=== PATIENT | male | born 2000 | race Caucasian/White ===

== ENCOUNTER 2021-10-22 08:31 | Inpatient (IN) | payer OTHER ==
[~2021-10-22] VITALS: Ht 170.2 cm; Wt 69.0 kg
[2021-10-22] MEDS ORDERED: EPINEPHrine 1:10,000 [1 MG/10 ML] SYRINGE ONE (10:11)
[2021-10-22] MEDS ORDERED: HALOPERIDOL LACTATE 5 MG/ML VIAL IM ONE (11:45)
[2021-10-22 11:52] LABS: BASOPHILS % (AUTO) 0.2 % (0.0-2.0); EOSINOPHILS % (AUTO) 0.1 % (1.0-6.0); HEMATOCRIT 43.1 % (41-53); LYMPHOCYTES # (AUTO) 0.8 K/uL (1.0-4.8); LYMPHOCYTES % (AUTO) 13.6 % (22.0-44.0); MEAN CORPUSCULAR HEMOGLOBIN 32.2 pg (26.0-34.0); MEAN CORPUSCULAR HGB CONC 34.9 G/dL (31.0-37.0); MEAN CORPUSCULAR VOLUME 92 fL (80-100); MONOCYTES # (AUTO) 0.4 K/uL (0.1-1.0); MONOCYTES % (AUTO) 7.3 % (2.0-9.0); NEUTROPHILS # (AUTO) 4.7 K/uL (1.8-7.7); NEUTROPHILS % (AUTO) 78.8 % (40.0-70.0); PLATELET COUNT (AUTO) 249 K/uL (150-450); RED BLOOD CELL COUNT(AUTO) 4.67 MIL/uL (4.50-5.90); RED CELL DISTRIBUTION WIDTH 12.9 % (11.5-14.5)
[2021-10-22 12:09] LABS: ANION GAP 13 mmol/L (8-16); CALCIUM, TOTAL 9.8 mg/dL (8.8-10.5); CARBON DIOXIDE 26 mmol/L (22-29); CHLORIDE 97 mmol/L (98-107); CREATININE 0.88 mg/dL (0.60-1.30); GLOMERULAR FILTR. RATE CALC > 60 mL/min (>60); GLUCOSE,RANDOM 93 mg/dL (70-110); POTASSIUM 3.7 mmol/L (3.5-5.1); SODIUM SERUM 136 mmol/L (136-145); UREA NITROGEN, BLOOD 19 mg/dL (7-18)
[2021-10-22 12:13] LABS: ALANINE AMINOTRANSFERASE 24 U/L (12-78); ALBUMIN 4.9 g/dL (3.4-5.0); ALKALINE PHOSPHATASE 67 U/L (46-116); ASPARTATE AMINOTRANSFERASE 41 U/L (15-37); BILIRUBIN,TOTAL 1.5 mg/dL (0.1-1.0); TOTAL PROTEIN, SERUM 8.6 g/dL (6.4-8.2)
[2021-10-22 12:15] LABS: ACETAMINOPHEN < 2 mcg/mL (10-30)
[2021-10-22 12:16] LABS: SALICYLATE < 0.2 mg/dL (2.8-20.0)
[2021-10-22 12:37] LABS: COVID AG,FIA SOURCE NASAL SWAB
[2021-10-22] MEDS ORDERED: ZOLPIDEM TARTRATE 10 MG TABLET PO PRN (13:15)
[2021-10-22 16:12] VITALS: BP 118/60
[2021-10-23] MEDS ORDERED: ONDANSETRON HCL 4 MG TABLET PO PRN (06:30)
[2021-10-23] MEDS ORDERED: LOPERAMIDE HCL 2 MG CAPSULE PO PRN (06:30)
[2021-10-23] MEDS ORDERED: PETROLATUM,WHITE 28 GM JELLY TP PRN (06:30)
[2021-10-23] MEDS ORDERED: ACETAMINOPHEN 325 MG TABLET PO PRN (06:30)
[2021-10-23] MEDS ORDERED: CloNIDine HCL 0.1 MG TABLET PO PRN (06:30)
[2021-10-23] MEDS ORDERED: NICOTINE 14 MG/24 HOUR PATCH TD PRN (06:30)
[2021-10-23] MEDS ORDERED: ALBUTEROL SULFATE HFA 90 MCG/PUFF 8 GM INHALER IH PRN (06:30)
[2021-10-23] MEDS ORDERED: IBUPROFEN 400 MG TABLET PO PRN (06:30)
[2021-10-23] MEDS ORDERED: MAGNESIUM HYDROXIDE SUSPENSION 30 ML UDCUP PO PRN (06:30)
[2021-10-23] MEDS ORDERED: MAG HYDROX/AL HYDROX/SIMETH ES 30 ML SUSPENSION UDCUP PO PRN (06:30)
[2021-10-23] MEDS ORDERED: DOCUSATE SODIUM 100 MG CAPSULE PO PRN (06:30)
[2021-10-23] MEDS ORDERED: GuaiFENesin/D-METHORPHAN [SUGAR-FREE] 200-20MG/10 ML SYRUP UDCUP PO PRN (06:30)
[2021-10-23 07:58] VITALS: BP 109/61
[2021-10-23 12:44] VITALS: BP 109/61
[2021-10-23 16:38] VITALS: BP 104/62
[2021-10-24 07:04] VITALS: BP 122/62
[2021-10-24 08:47] VITALS: BP 120/64
[2021-10-24 16:09] VITALS: BP 134/90
[2021-10-24] MEDS: LORazepam 2 MG TABLET PO PRN (17:21)
[2021-10-24] MEDS: RisperiDONE 1 MG TABLET PO SCH (17:21)
[2021-10-24] MEDS: HALOPERIDOL 5 MG TABLET PO PRN (17:21)
[2021-10-25 05:49] VITALS: BP 117/66
[2021-10-25 08:09] VITALS: BP 100/61
[2021-10-25] MEDS: LORazepam 2 MG TABLET PO PRN ×2 (08:27→16:46)
[2021-10-25] MEDS: RisperiDONE 1 MG TABLET PO SCH ×2 (08:27→16:46)
[2021-10-25 16:06] VITALS: BP 113/68
[2021-10-25] MEDS: HALOPERIDOL 5 MG TABLET PO PRN (16:46)
[2021-10-26 06:08] VITALS: BP 110/60
[2021-10-26] MEDS: RisperiDONE 1 MG TABLET PO SCH ×2 (08:24→16:19)
[2021-10-26 09:10] VITALS: BP 141/76
[2021-10-26 16:14] VITALS: BP 110/71
[2021-10-27 04:09] VITALS: BP 116/68
[2021-10-27] MEDS: RisperiDONE 1 MG TABLET PO SCH (08:23)
[2021-10-27 08:26] VITALS: BP 108/69
[2021-10-27] MEDS ORDERED: RISP0.5T39 PO (10:01)
[2021-10-27] MEDS ORDERED: RISP1TAB48 PO (10:01)
[2021-10-27] MEDS ORDERED: RISP1TAB98 PO (10:45)
== END 2021-10-27 12:15 | disposition home or self-care (01) | DRG 885 ==
LOC: EMS 08:34 → B3A 13:54
PROVIDERS: ADMIT Psychiatry & Neurology Child & Adolescent Psychiatry; ATTEND Psychiatry & Neurology Child & Adolescent Psychiatry
DX: F20.9 Schizophrenia, unspecified (principal); F10.10 Alcohol abuse, uncomplicated; E80.6 Other disorders of bilirubin metabolism; F41.9 Anxiety disorder, unspecified; F19.10 Other psychoactive substance abuse, uncomplicated; Z71.41 Alcohol abuse counseling and surveillance of alcoholic; Z59.00 Homelessness unspecified
CPT/HCPCS: 80053; 85025; 99285; G0480; G0481; J0171; J1630

== ENCOUNTER 2021-11-14 15:46 | Emergency (ER) | payer OTHER ==
[~2021-11-14] VITALS: Ht 175.3 cm; Wt 72.7 kg
[~2021-11-14 15:46] MED LIST: RISP1TAB48 PO; RISP1TAB98 PO
[2021-11-14 16:34] LABS: HEMATOCRIT 40.7 % (41-53); HEMOGLOBIN 14.3 g/dL (13.5-17.5); MEAN CORPUSCULAR HEMOGLOBIN 32.6 pg (26.0-34.0); MEAN CORPUSCULAR HGB CONC 35.2 G/dL (31.0-37.0); MEAN CORPUSCULAR VOLUME 93 fL (80-100); PLATELET COUNT (AUTO) 217 K/uL (150-450); RED BLOOD CELL COUNT(AUTO) 4.39 MIL/uL (4.50-5.90)
[2021-11-14 16:47] LABS: ANION GAP 7 mmol/L (8-16); CALCIUM, TOTAL 9.6 mg/dL (8.8-10.5); CARBON DIOXIDE 31 mmol/L (22-29); CHLORIDE 103 mmol/L (98-107); CREATININE 0.94 mg/dL (0.60-1.30); GLOMERULAR FILTR. RATE CALC > 60 mL/min (>60); GLUCOSE,RANDOM 129 mg/dL (70-110); POTASSIUM 3.7 mmol/L (3.5-5.1); SODIUM SERUM 141 mmol/L (136-145); UREA NITROGEN, BLOOD 13 mg/dL (7-18)
[2021-11-14 16:52] LABS: ALANINE AMINOTRANSFERASE 34 U/L (12-78); ALBUMIN 4.4 g/dL (3.4-5.0); ALKALINE PHOSPHATASE 55 U/L (46-116); ASPARTATE AMINOTRANSFERASE 17 U/L (15-37); BILIRUBIN,TOTAL 0.5 mg/dL (0.1-1.0); TOTAL PROTEIN, SERUM 7.6 g/dL (6.4-8.2)
[2021-11-14 16:57] LABS: COVID AG,FIA SOURCE NASOPHARYNGEAL
[2021-11-14 17:01] LABS: ACETAMINOPHEN < 2 mcg/mL (10-30)
[2021-11-14 17:23] LABS: SALICYLATE 0.5 mg/dL (2.8-20.0)
[2021-11-14 17:30] LABS: BAND NEUTROPHILS % (MANUAL) 2 % (0-5); LYMPHOCYTES % (MANUAL) 17 % (22-44); MONOCYTES % (MANUAL) 5 % (2-9); SEGMENTED NEUTROPHILS % 76 % (40-70)
[2021-11-14 18:17] VITALS: BP 112/72
[2021-11-14 18:44] LABS: AMPHET/METH SCREEN,URINE NEGATIVE (NEGATIVE); BARBITURATE SCREEN, URINE NEGATIVE (NEGATIVE); BENZODIAZEPINES SCREEN,URINE NEGATIVE (NEGATIVE); CANNABINOID SCREEN,URINE POSITIVE (NEGATIVE); COCAINE SCREEN,URINE NEGATIVE (NEGATIVE); METHADONE SCREEN, URINE NEGATIVE (NEGATIVE); OPIATE SCREEN,URINE NEGATIVE (NEGATIVE)
[2021-11-14 18:47] LABS: PHENCYCLIDINE SCREEN,URINE NEGATIVE (NEGATIVE)
== END 2021-11-15 00:02 | disposition short-term general hospital (02) ==
LOC: EMS 16:25
DX: F20.9 Schizophrenia, unspecified (principal); Z20.822 Contact with and (suspected) exposure to COVID-19
CPT/HCPCS: 36415; 80053; 80307; 85025; 87426; 93005; 99285; G0480; G0481